=== PATIENT | male | born 1960 | race Caucasian/White ===

== ENCOUNTER 2016-08-23 10:53 | Emergency (ER) | payer BC ==
[~2016-08-23] VITALS: Ht 180.3 cm; Wt 99.2 kg
[~2016-08-23 10:53] MED LIST: BUPRTAB51 PO; PROP10TA7 PO
[2016-08-23 10:55] VITALS: TEMP 36.7; Ht 180.3 cm; Wt 99.2 kg
[2016-08-23] MEDS ORDERED: SODIUM CHLORIDE 0.9% 1000ML 1,000 ML IV STA (11:07)
[2016-08-23] MEDS ORDERED: SODIUM CHLORIDE 0.9% 1000ML 1,000 ML IV ONE (11:07)
[2016-08-23] MEDS ORDERED: KETOROLAC TROMETHAMINE 30 MG/ML VIAL IV STA (11:07)
[2016-08-23 11:17] LABS: BASO % 0.1 %; BASO ABS # 0.01 K/uL (0-0.2); COMPLETE YES; EOS % 0.1 %; HEMATOCRIT 41.8 % (42-52); IG% 0.2 %; LYMPH % 5.7 %; LYMPH ABS # 0.65 K/uL (1.2-3.4); MEAN CELL VOLUME 89.3 fL (80-100); MEAN CORPUSCULAR HEMOGLOBIN 30.6 pg (25-34); MEAN CORPUSCULAR HGB CONC 34.2 g/dl (32-36); MEAN PLATELET VOLUME 10.3 fL (7.4-10.4); MONO % 3.8 %; NEUT % 90.1 %; PLATELET COUNT 167 K/uL (130-400); RED BLOOD COUNT 4.68 M/uL (4.7-6.1); WHITE BLOOD COUNT 11.38 K/uL (4.8-10.8)
[2016-08-23] MEDS ORDERED: OPTIRAY 320 IV PRN (11:30)
[2016-08-23 11:35] LABS: ALT/SGPT 26 U/L (12-78); BLOOD UREA NITROGEN 15 mg/dl (7-18); BUN/CREATININE RATIO 16.4 (10-20); CARBON DIOXIDE 26 mmol/L (21-32); CHLORIDE 107 mmol/L (98-107); CREATININE 0.94 mg/dl (0.60-1.40); GLUCOSE 108 mg/dl (70-99); POTASSIUM 4.4 mmol/L (3.5-5.1); SODIUM 138 mmol/L (136-145)
[2016-08-23 11:38] LABS: ALKALINE PHOSPHATASE 73 U/L (45-117); AST/SGOT 15 U/L (15-37)
[2016-08-23] MEDS ORDERED: PRED-301 PO (11:50)
--- NOTE | 2016-08-23 12:44 | DIAGNOSTIC IMAGING REPORT ---
HEAD WITHOUT CONTRAST (CT) CT DOSE: HISTORY: Mental status change eval for headache, blurry vision TECHNIQUE: Multiaxial CT images of the head were performed without the use of intravenous contrast. Comparison: 11/18/2014 Findings: The paranasal sinuses and mastoid air cells are clear. The calvarium and skull base are intact. The ventricles and sulci are within normal limits. There is no mass, hematoma, midline shift, or acute infarct. Impression: No acute intracranial abnormality. The above report was generated using voice recognition software. It may contain grammatical, syntax or spelling errors. Electronically signed by: Darell Galvez M.D. 08/23/2016 12:43 PM Dictated Date/Time: 08/23/2016 12:40 PM
--- NOTE | 2016-08-23 12:49 | DIAGNOSTIC IMAGING REPORT ---
(CHEST FOR PE) ANGIO WITH CT DOSE: 934.84 mGy.cm HISTORY: Chest pain dyspnea TECHNIQUE: Multiaxial CT images of the chest were performed following the intravenous administration of contrast to evaluate the pulmonary arteries. Maximal intensity projection images were also obtained. COMPARISON STUDY: 04/18/2014 FINDINGS: Thoracic aorta is unremarkable. Pulmonary arterial vasculature enhances appropriately. There is no evidence for filling defect. Nonspecific interstitial prominence both lung bases. Stable 3.5 mm nodule right lung base. No new or interval finding. IMPRESSION: No evidence for pulmonary embolus. Mild bibasilar interstitial prominence The above report was generated using voice recognition software. It may contain grammatical, syntax or spelling errors. Electronically signed by: Darell Galvez M.D. 08/23/2016 12:48 PM Dictated Date/Time: 08/23/2016 12:43 PM
--- NOTE | 2016-08-23 14:19 | EMERGENCY ROOM VISIT NOTE ---
History Report prepared by Sabra: Sam Foley Under the Supervision of: Dr. Maikel Barron M.D. First contact with patient: 10:59 Chief Complaint: CHEST PAIN Stated Complaint: CABRERA, BLURRED VISION, SMALL CHEST PAINS Nursing Triage Summary: Pt reports blurred vision and "zone feeling. I've had a lot of migraines. It feels similar to when I had blood clots." Hx of PE 2.5 years ago. Midsternal cp into neck. Denies back pain. SOB, lightheaded. Pt was recently in [facility]. History of Present Illness The patient is a 55 year old male who presents to the Emergency Room with complaints of persistent chest pain beginning last night. He also complains of sore throat, cough, headaches, blurred vision, feeling "zoned out", and mild shortness of breath. He states that he has been having frequent migraines recently, which is not uncommon for him. The patient states that his current symptoms feel very similar to his previous PE which occurred about 2.5 years ago. He notes that he was in [place] and just returned a few days ago. He was previously on Coumadin but is not on it anymore. The patient denies any fevers. He was seen at a [facility] center this morning for his sore throat recently. Source of History: patient Onset: Last night Position: chest Timing: other (persistent) Associated Symptoms: + headache, + sorethroat, + cough, + SOB (mild), No fevers Note: The patient also complains of a blurred vision, and feeling "zoned out". Review of Systems See HPI for pertinent positives & negatives. A total of 10 systems reviewed and were otherwise negative. Past Medical & Surgical Medical Problems: (1) DVT, lower extremity, distal, acute (2) Factor 5 Leiden mutation, heterozygous (3) History of lumbar fusion (4) History of Lyme disease (5) Migraine (6) No significant medical problems Surgical Problems: (1) Status post cholecystectomy Old medical records were reviewed. Nurse's notes were reviewed and I agree with. Family History Seizures Social History Smoking Status: Never Smoker Alcohol Use: occasionally Drug Use: none Marital Status: Housing Status: lives with family Occupation Status: employed Current/Historical Medications Scheduled Bupropion Hcl (Wellbutrin Xl), 300 MG PO DAILY Prednisone (Prednisone), Unknown Dose PO UD Propranolol (Inderal), 10 MG PO DAILY Allergies Coded Allergies: No Known Allergies (Unverified , 08/23/16) Physical Exam Vital Signs Date Time Temp Pulse Resp B/P (MAP) Pulse Ox O2 Delivery O2 Flow Rate FiO2 08/23/16 14:21 50 18 120/74 95 08/23/16 13:26 53 18 115/71 99 Room Air 08/23/16 12:11 51 08/23/16 11:58 54 18 109/68 96 Room Air 08/23/16 10:55 36.7 56 18 125/80 96 Room Air Physical Exam General: non-ill appearing middle aged male in no acute distress HEENT: Normal cephalic atraumatic. Pupils are equal round and reactive to light. Extraocular movements are intact. Oropharynx is pink with moist mucous membranes. No swelling of the mouth lips or tongue. Neck: Supple with a midline trachea. No meningeal signs or stiffness, no JVD or bruits. No Stridor. Chest: Clear to auscultation bilaterally. No wheezes or rhonchi. No increased work of breathing. Heart: regular rate and rhythm. Abdomen: Soft nontender, nondistended without rebound guarding or rigidity. Extremities: No cyanosis clubbing or edema. No calf tenderness or assymetry Spine/Back. Non tender to palpation. No CVA tenderness Skin: Good turgor without rashes. Neurologic exam: Cranial nerves two through 12 are intact. Motor and sensation are intact and symmetrical throughout. Medical Decision & Procedures ER Provider Diagnostic Interpretation: CT results as stated below per my review and radiologist interpretation: HEAD WITHOUT CONTRAST (CT) Findings: The paranasal sinuses and mastoid air cells are clear. The calvarium and skull base are intact. The ventricles and sulci are within normal limits. There is no mass, hematoma, midline shift, or acute infarct. Impression: No acute intracranial abnormality. The above report was generated using voice recognition software. It may contain grammatical, syntax or spelling errors. Electronically signed by: Darell Galvez M.D. (CHEST FOR PE) ANGIO WITH FINDINGS: Thoracic aorta is unremarkable. Pulmonary arterial vasculature enhances appropriately. There is no evidence for filling defect. Nonspecific interstitial prominence both lung bases. Stable 3.5 mm nodule right lung base. No new or interval finding. IMPRESSION: No evidence for pulmonary embolus. Mild bibasilar interstitial prominence The above report was generated using voice recognition software. It may contain grammatical, syntax or spelling errors. Electronically signed by: Daerll Galvez M.D. Laboratory Results 08/23/16 11:07 Red Blood Count 4.68, Mean Corpuscular Volume 89.3, Mean Corpuscular Hemoglobin 30.6, Mean Corpuscular Hemoglobin Concent 34.2, Mean Platelet Volume 10.3, Neutrophils (%) (Auto) 90.1, Lymphocytes (%) (Auto) 5.7, Monocytes (%) (Auto) 3.8, Eosinophils (%) (Auto) 0.1, Basophils (%) (Auto) 0.1, Neutrophils # (Auto) 10.26, Lymphocytes # (Auto) 0.65, Monocytes # (Auto) 0.43, Eosinophils # (Auto) 0.01, Basophils # (Auto) 0.01 08/23/16 11:07 Test 08/23/16 11:07 White Blood Count 11.38 K/uL (4.8-10.8) Red Blood Count 4.68 M/uL (4.7-6.1) Hemoglobin 14.3 g/dL (14.0-18.0) Hematocrit 41.8 % (42-52) Mean Corpuscular Volume 89.3 fL (80-100) Mean Corpuscular Hemoglobin 30.6 pg (25-34) Mean Corpuscular Hemoglobin Concent 34.2 g/dl (32-36) Platelet Count 167 K/uL (130-400) Mean Platelet Volume 10.3 fL (7.4-10.4) Neutrophils (%) (Auto) 90.1 % Lymphocytes (%) (Auto) 5.7 % Monocytes (%) (Auto) 3.8 % Eosinophils (%) (Auto) 0.1 % Basophils (%) (Auto) 0.1 % Neutrophils # (Auto) 10.26 K/uL (1.4-6.5) Lymphocytes # (Auto) 0.65 K/uL (1.2-3.4) Monocytes # (Auto) 0.43 K/uL (0.11-0.59) Eosinophils # (Auto) 0.01 K/uL (0-0.5) Basophils # (Auto) 0.01 K/uL (0-0.2) RDW Standard Deviation 41.6 fL (36.4-46.3) RDW Coefficient of Variation 12.9 % (11.5-14.5) Immature Granulocyte % (Auto) 0.2 % Immature Granulocyte # (Auto) 0.02 K/uL (0.00-0.02) Anion Gap 5.0 mmol/L (3-11) Est Creatinine Clear Calc Drug Dose 109.1 ml/min Estimated GFR () 106.9 Estimated GFR (Non- 92.2 BUN/Creatinine Ratio 16.4 (10-20) Calcium Level 9.0 mg/dl (8.5-10.1) Total Bilirubin 0.5 mg/dl (0.2-1) Direct Bilirubin < 0.1 mg/dl (0-0.2) Aspartate Amino Transf (AST/SGOT) 15 U/L (15-37) Alanine Aminotransferase (ALT/SGPT) 26 U/L (12-78) Alkaline Phosphatase 73 U/L (45-117) Troponin I < 0.015 ng/ml (0-0.045) Total Protein 7.3 gm/dl (6.4-8.2) Albumin 3.7 gm/dl (3.4-5.0) Lipase 102 U/L (73-393) Laboratory studies as stated above per my review. Medications Administered Medications (Trade) Dose Ordered Sig/Rukhsana Route Start Time Stop Time Status Last Admin Dose Admin Sodium Chloride 1,000 ml @ 999 mls/hr Q1H1M STAT IV 08/23/16 11:07 08/23/16 12:07 DC 08/23/16 11:15 999 MLS/HR Sodium Chloride 1,000 ml @ 150 mls/hr Q6H40M ONCE IV 08/23/16 11:07 08/23/16 14:34 DC 08/23/16 12:02 150 MLS/HR Ketorolac Tromethamine (Toradol Inj) 30 mg NOW STAT IV 08/23/16 11:07 08/23/16 11:10 DC 08/23/16 11:14 30 MG ECG Indication: chest pain Rate (beats per minute): 53 Rhythm: sinus bradycardia Findings: no acute ischemic change, no ectopy Comparison ECG Date: July 06, 2014 Change: no significant change ED Course 1101: Past medical records reviewed. The patient was evaluated in room B3B, and a complete history and physical examination were performed. 1107: Ordered Toradol Inj 30 mg IV, Sodium Chloride 1000 ml @ 150 mls/hr IV, Sodium Chloride 1000 ml @ 999 mls/hr IV. 1405: Upon reevaluation, the patient is resting comfortably. I discussed the results and treatment plan with him. He verbalized agreement of the treatment plan. The patient was discharged home. Medical Decision Differentials include, but are not limited to; migraine, PE, cardiac disease, intracranial process, infection, and electrolyte or metabolic abnormality. Medication reconciliation I have reviewed the patient's medications on the chart Blood pressure monitoring: The patient has blood pressure that is normal and does not need follow-up This patient comes in as described above he has a history of PE and did travel recently had some vague chest discomfort on the left and also felt like his vision was slightly off. He said he had these type of symptoms when his PE before was worried this diagnoses . Additionally he has had migraines and this is been a chronic issue. He's had no fever or chills or trauma. He has a normal neurologic exam. Looking at his eyes, he has no redness ears visual acuity is slightly diminished but he says the left eye is been given problems for quite some time. He is no proptosis. He has nothing to no anterior chamber abnormality or hyphema. CAT scan does not show any evidence of PE. He has nothing to suggest acute coronary syndrome or arrhythmia. He has a normal neurologic exam and normal CAT scan his head he is feeling better with the fluids and Toradol. I do think he should follow-up with an eye doctor he is to return if: increasing pain, worsening of symptoms, fever chills, any new problems or concerns. He is happy with the plan and was and discharged to home. Impression Primary Impression: Left sided chest pain Additional Impression: Migraine Scribe Attestation The scribe's documentation has been prepared under my direction and personally reviewed by me in its entirety. I confirm that the note above accurately reflects all work, treatment, procedures, and medical decision making performed by me. Departure Information Dispostion Home / Self-Care Referrals No Doctor, Assigned (PCP) Forms HOME CARE DOCUMENTATION FORM, IMPORTANT VISIT INFORMATION Patient Instructions My [facility] Additional Instructions Rest. Plenty of fluids. Return if: worsening of symptoms, any new problems or concerns Follow-up with your doctor this week for recheck Problem Qualifiers
[2016-08-23 14:21] VITALS: BP 120/74; PULSE 50; O2SAT 95
== END 2016-08-23 14:22 | disposition home or self-care (01) ==
LOC: C.EDB 10:55
DX: R07.9 Chest pain, unspecified (principal); G43.909 Migraine, unspecified, not intractable, without status migrainosus; Z86.718 Personal history of other venous thrombosis and embolism; D68.51 Activated protein C resistance; Z90.49 Acquired absence of other specified parts of digestive tract; Z98.1 Arthrodesis status; Z82.0 Family history of epilepsy and other diseases of the nervous system; Z79.899 Other long term (current) drug therapy

== ENCOUNTER 2017-02-13 22:24 | Emergency (ER) | payer BC ==
[~2017-02-13] VITALS: Ht 180.3 cm; Wt 100.0 kg
[~2017-02-13 22:24] MED LIST changes: +PRED-301 PO; +[UNRECOGNIZED DRUG - CODE] PEG
[2017-02-13 22:29] VITALS: TEMP 36.4; Ht 180.3 cm; Wt 100.0 kg
[2017-02-13 22:58] VITALS: O2SAT 96
[2017-02-13 23:11] LABS: BASO % 0.6 %; BASO ABS # 0.03 K/uL (0-0.2); EOS ABS # 0.15 K/uL (0-0.5); HEMATOCRIT 41.8 % (42-52); HEMOGLOBIN 14.7 g/dL (14.0-18.0); IG# 0.01 K/uL (0.00-0.02); LYMPH % 34.5 %; LYMPH ABS # 1.73 K/uL (1.2-3.4); MEAN CELL VOLUME 88.4 fL (80-100); MEAN CORPUSCULAR HEMOGLOBIN 31.1 pg (25-34); MEAN CORPUSCULAR HGB CONC 35.2 g/dl (32-36); MEAN PLATELET VOLUME 10.1 fL (7.4-10.4); NEUT % 53.7 %; NEUT ABS # 2.69 K/uL (1.4-6.5); PLATELET COUNT 161 K/uL (130-400); RED CELL DISTRIBUTION WIDTH CV 12.7 % (11.5-14.5); RED CELL DISTRIBUTION WIDTH SD 40.7 fL (36.4-46.3); WHITE BLOOD COUNT 5.01 K/uL (4.8-10.8)
[2017-02-13 23:25] LABS: PTT PATIENT 26.2 SECONDS (21.0-31.0)
[2017-02-13 23:28] LABS: BLOOD UREA NITROGEN 12 mg/dl (7-18); CALCIUM 8.9 mg/dl (8.5-10.1); CARBON DIOXIDE 30 mmol/L (21-32); CREATININE 0.98 mg/dl (0.60-1.40); GLUCOSE 97 mg/dl (70-99); POTASSIUM 3.7 mmol/L (3.5-5.1); SODIUM 139 mmol/L (136-145)
[2017-02-13] MEDS ORDERED: LMC25 PO (23:32)
[2017-02-13] MEDS ORDERED: IMTIN5 (23:32)
[2017-02-13 23:54] VITALS: BP 110/68; PULSE 67; O2SAT 97
[2017-02-13] MEDS ORDERED: KETOROLAC TROMETHAMINE 30 MG/ML VIAL IV STA (23:59)
--- NOTE | 2017-02-13 23:59 | EMERGENCY ROOM VISIT NOTE ---
History Report prepared by Sabra: Doemnico Caba Under the Supervision of: Dr. Fredy Silva D.O. First contact with patient: 22:32 Chief Complaint: CARDIAC ASSESSMENT Stated Complaint: CHEST PAIN, FEELS LIKE A FLUTTER IN HEART History of Present Illness The patient is a 56 year old male who presents to the Emergency Room with complaints of constant, sharp, chest pain beginning an hour ago. The patient states he was sitting down watching TV when his symptoms began. He reports his symptoms intensified, so he came to the ED. The patient notes his symptoms also felt similar to when he had a PE. He states he had gallbladder surgery when he developed his PE. The patient reports he was on blood thinners for a year and is currently off them. He notes he just returned from a cruise to [place], and he flew from [place] to [facility]. The patient states he had to drive to [place] from here. He denies shortness of breath, recent swelling in his legs, recent surgery, and recent illness. The patient notes he did not show symptoms in his legs when he had his PE. He states he has a history of Factor V Leiden. Source of History: patient Onset: an hour ago Position: chest Quality: sharp Timing: constant Associated Symptoms: No SOB Note: Associated symptoms: recent travel Denies: recent swelling in his legs, recent surgery, recent illness Review of Systems See HPI for pertinent positives & negatives. A total of 10 systems reviewed and were otherwise negative. Past Medical & Surgical Medical Problems: (1) DVT, lower extremity, distal, acute (2) Factor 5 Leiden mutation, heterozygous (3) History of lumbar fusion (4) History of Lyme disease (5) Migraine (6) No significant medical problems Surgical Problems: (1) Status post cholecystectomy Family History Seizures Social History Smoking Status: Never Smoker Alcohol Use: occasionally Drug Use: none Marital Status: Housing Status: lives with family Occupation Status: employed Current/Historical Medications Scheduled Bupropion Hcl (Wellbutrin Xl), 300 MG PO DAILY Lamotrigine (Lamotrigine), 75 MG PO DAILY Scheduled PRN Sumatriptan Succinate (Imitrex Nasal [place]), 1 SPRAY NA DIRECTED PRN for Migraine Allergies Coded Allergies: No Known Allergies (Unverified , 02/13/17) Physical Exam Vital Signs Date Time Temp Pulse Resp B/P (MAP) Pulse Ox O2 Delivery O2 Flow Rate FiO2 02/13/17 23:54 67 20 110/68 97 Room Air 02/13/17 22:59 66 18 109/62 96 Room Air 02/13/17 22:58 96 Room Air 02/13/17 22:54 97 Room Air 02/13/17 22:50 68 02/13/17 22:29 36.4 72 20 120/82 97 Room Air Physical Exam CONSTITUTIONAL/VITAL SIGNS: Reviewed / noted above. GENERAL: Non-toxic in appearance. INTEGUMENTARY: Warm, dry, and [place]. HEAD: Normocephalic. EYES: without scleral icterus or trauma. ENT/OROPHARYNX: clear and moist. LYMPHADENOPATHY/NECK: Is supple without lymphadenopathy or meningismus. RESPIRATORY: Lungs clear and equal. CARDIOVASCULAR: Regular rate and rhythm. GI/ABDOMEN: Soft and nontender. No organomegaly or pulsatile mass. No rebound or guarding. Normal bowel sounds. EXTREMITIES: Warm and well perfused. BACK: No CVA tenderness. NEUROLOGICAL: Intact without focal deficits. PSYCHIATRIC: normal affect. MUSCULOSKELETAL: Normally developed with good muscle tone. Medical Decision & Procedures ER Provider Diagnostic Interpretation: X ray results and stated below per my interpretation and radiology interpretation. Chest One View Portable: No acute disease. No pneumothorax. No pneumonia. Laboratory Results 02/13/17 22:50 Red Blood Count 4.73, Mean Corpuscular Volume 88.4, Mean Corpuscular Hemoglobin 31.1, Mean Corpuscular Hemoglobin Concent 35.2, Mean Platelet Volume 10.1, Neutrophils (%) (Auto) 53.7, Lymphocytes (%) (Auto) 34.5, Monocytes (%) (Auto) 8.0, Eosinophils (%) (Auto) 3.0, Basophils (%) (Auto) 0.6, Neutrophils # (Auto) 2.69, Lymphocytes # (Auto) 1.73, Monocytes # (Auto) 0.40, Eosinophils # (Auto) 0.15, Basophils # (Auto) 0.03 02/13/17 22:50 Test 02/13/17 22:50 White Blood Count 5.01 K/uL (4.8-10.8) Red Blood Count 4.73 M/uL (4.7-6.1) Hemoglobin 14.7 g/dL (14.0-18.0) Hematocrit 41.8 % (42-52) Mean Corpuscular Volume 88.4 fL (80-100) Mean Corpuscular Hemoglobin 31.1 pg (25-34) Mean Corpuscular Hemoglobin Concent 35.2 g/dl (32-36) Platelet Count 161 K/uL (130-400) Mean Platelet Volume 10.1 fL (7.4-10.4) Neutrophils (%) (Auto) 53.7 % Lymphocytes (%) (Auto) 34.5 % Monocytes (%) (Auto) 8.0 % Eosinophils (%) (Auto) 3.0 % Basophils (%) (Auto) 0.6 % Neutrophils # (Auto) 2.69 K/uL (1.4-6.5) Lymphocytes # (Auto) 1.73 K/uL (1.2-3.4) Monocytes # (Auto) 0.40 K/uL (0.11-0.59) Eosinophils # (Auto) 0.15 K/uL (0-0.5) Basophils # (Auto) 0.03 K/uL (0-0.2) RDW Standard Deviation 40.7 fL (36.4-46.3) RDW Coefficient of Variation 12.7 % (11.5-14.5) Immature Granulocyte % (Auto) 0.2 % Immature Granulocyte # (Auto) 0.01 K/uL (0.00-0.02) Prothrombin Time 10.6 SECONDS (9.0-12.0) Prothromb Time International Ratio 1.0 (0.9-1.1) Activated Partial Thromboplast Time 26.2 SECONDS (21.0-31.0) Partial Thromboplastin Ratio 1.0 D-Dimer 350 ug/L FEU (0-500) Anion Gap 4.0 mmol/L (3-11) Est Creatinine Clear Calc Drug Dose 103.8 ml/min Estimated GFR () 100.9 Estimated GFR (Non- 87.1 BUN/Creatinine Ratio 12.6 (10-20) Calcium Level 8.9 mg/dl (8.5-10.1) Troponin I < 0.015 ng/ml (0-0.045) Laboratory results as stated above per my review. Medications Administered Medications (Trade) Dose Ordered Sig/Rukhsana Route Start Time Stop Time Status Last Admin Dose Admin Ketorolac Tromethamine (Toradol Inj) 30 mg NOW STAT IV 02/13/17 23:59 02/14/17 00:00 DC 02/14/17 00:05 30 MG ECG Indication: chest pain Rate (beats per minute): 61 Rhythm: normal sinus Findings: no acute ischemic change, no ectopy ED Course 2235: Previous medical records were reviewed. The patient was evaluated in room B02. A complete history and physical examination was performed. 2358: Ordered Ketorolac Tromethamine 30 mg IV 0001: On reevaluation, the patient is resting comfortably. I discussed the results and findings with the patient. The patient verbalized agreement of the treatment plan. He was discharged home. Medical Decision Differentials considered include acute myocardial infarction, acute coronary syndrome, myocarditis, pericarditis, pericardial effusions /tamponade, esophageal perforation, thoracic aortic dissection, pulmonary embolism, pneumonia, pneumothorax, pancreatitis, shingles, acute cholecystitis, and perforated abdominal viscus. This is a 56-year-old male who presents to the ED with a chief complaint of chest pain for one hour. He reports a sharp left-sided chest pain in the upper chest. He also thought that he might a felt a little fluttering. He states that his symptoms were similar to a PE 2 years ago. He has history of factor V Leiden. The patient does report recent travel. He states that he flew from [place] to the [facility] and then drove from [place] to [facility]. The patient denies any pain in his legs or swelling. I did review his previous chart when he had a PE. At that time, he had a positive D-dimer test. I did offer CT scan versus d-dimer for the patient today. He decided on d-dimer. The patient does not have any lower show any swelling and he is not short of breath. His pain is very localized left anterior chest. D-dimer was negative. CBC is normal, troponin was negative, EKG shows a sinus rhythm, there be was normal. The patient was told the results of the test. He is felt to be stable for discharge and outpatient follow-up. Medication Reconcilliation Current Medication List: was personally reviewed by me Blood Pressure Screening Patient's blood pressure: Normal blood pressure Blood pressure disposition: Did not require urgent referral Impression Primary Impression: Left sided chest pain Scribe Attestation The scribe's documentation has been prepared under my direction and personally reviewed by me in its entirety. I confirm that the note above accurately reflects all work, treatment, procedures, and medical decision making performed by me. Departure Information Dispostion Home / Self-Care Referrals Milton Rene M.D. (PCP) Forms IMPORTANT VISIT INFORMATION Patient Instructions My [facility] Additional Instructions Take ibuprofen for pain as needed. Follow-up with your doctor for further care and evaluation in 1-2 days if symptoms persist. Return to the emergency department for worsening or new symptoms or any concerns. You have been examined and treated today on an emergency basis only. This is not a substitute for, or an effort to provide, complete comprehensive medical care. It is impossible to recognize and treat all injuries or illnesses in a single emergency department visit. It is therefore important that you follow up closely with your doctor. Call as soon as possible for an appointment.
--- NOTE | 2017-02-14 07:37 | DIAGNOSTIC IMAGING REPORT ---
CHEST ONE VIEW PORTABLE HISTORY: Evaluate Fever/Sepsis COMPARISON: Chest 07/06/2014. FINDINGS: The lungs are clear. Cardiac silhouette is borderline enlarged. No pleural effusions. No pneumothorax. IMPRESSION: No significant change compared to the prior study. No acute process. Electronically signed by: Trey Hill M.D. 02/14/2017 7:35 AM Dictated Date/Time: 02/14/2017 7:35 AM
== END 2017-02-14 00:15 | disposition home or self-care (01) ==
LOC: C.EDB 22:25
DX: R07.9 Chest pain, unspecified (principal); D68.51 Activated protein C resistance; Z86.711 Personal history of pulmonary embolism; Z86.718 Personal history of other venous thrombosis and embolism; Z98.1 Arthrodesis status; Z90.49 Acquired absence of other specified parts of digestive tract; Z82.0 Family history of epilepsy and other diseases of the nervous system

== ENCOUNTER 2017-05-21 15:28 | Emergency (ER) | payer BC ==
[~2017-05-21] VITALS: Ht 180.3 cm; Wt 101.2 kg
[~2017-05-21 15:28] MED LIST changes: +IMTIN5; +LAMO100T16 PO; +LMC25 PO; -PRED-301 PO; -PROP10TA7 PO; +SUMA6KIT INJ; -[UNRECOGNIZED DRUG - CODE] PEG
[2017-05-21 15:33] VITALS: TEMP 36.7; Ht 180.3 cm; Wt 101.2 kg
[2017-05-21] MEDS ORDERED: KETOROLAC TROMETHAMINE 30 MG/ML VIAL IV STA (15:51)
[2017-05-21] MEDS ORDERED: DiphenhydrAMINE HCL 50 MG/ML VIAL IV STA (15:51)
[2017-05-21] MEDS ORDERED: MAGNESIUM SULFATE 1GM / D5W 1 GM BAG IV STA (15:51)
[2017-05-21] MEDS ORDERED: METOCLOPRAMIDE HCL INJ 5 MG/ML 2 ML VIAL IV STA (15:51)
[2017-05-21] MEDS ORDERED: OXYC1TAB3 PO (16:00)
[2017-05-21 16:37] LABS: BASO % 0.8 %; BASO ABS # 0.05 K/uL (0-0.2); EOS % 7.3 %; EOS ABS # 0.45 K/uL (0-0.5); HEMATOCRIT 41.1 % (42-52); HEMOGLOBIN 14.3 g/dL (14.0-18.0); IG# 0.01 K/uL (0.00-0.02); LYMPH % 26.9 %; LYMPH ABS # 1.66 K/uL (1.2-3.4); MEAN CELL VOLUME 87.6 fL (80-100); MEAN CORPUSCULAR HEMOGLOBIN 30.5 pg (25-34); MEAN CORPUSCULAR HGB CONC 34.8 g/dl (32-36); MEAN PLATELET VOLUME 10.4 fL (7.4-10.4); MONO % 6.2 %; MONO ABS # 0.38 K/uL (0.11-0.59); NEUT % 58.6 %; NEUT ABS # 3.61 K/uL (1.4-6.5); PLATELET COUNT 169 K/uL (130-400); RED CELL DISTRIBUTION WIDTH CV 12.6 % (11.5-14.5); RED CELL DISTRIBUTION WIDTH SD 40.4 fL (36.4-46.3); WHITE BLOOD COUNT 6.16 K/uL (4.8-10.8)
[2017-05-21 16:55] LABS: CALCIUM 8.6 mg/dl (8.5-10.1); CREATININE 0.98 mg/dl (0.60-1.40); POTASSIUM 3.8 mmol/L (3.5-5.1)
[2017-05-21 16:56] VITALS: BP 116/67; PULSE 53; O2SAT 96
--- NOTE | 2017-05-21 18:12 | EMERGENCY ROOM VISIT NOTE ---
History Report prepared by Sabra: Violet Keith Under the Supervision of: Dr. Deandre Escobar M.D. First contact with patient: 15:40 Chief Complaint: HEADACHE Stated Complaint: MIRAGINE History of Present Illness The patient is a 56 year old male who presents to the Emergency Room with complaints of a constant headache starting 8 days ago. The patient states that he has a history of migraines for 15 years and this feels similar to his previous ones. He states that he received Botox 2 days ago for them and it offered no relief. He reports that he has never had his migraine for more than 3 days. He reports that his migraines have started to move from the front of his forehead to the back of his head. He notes that is where this one is today. He states that it is a constant pressure with shooting pains. He notes he has taken Imitrex injections with no relief. He notes his last injection was . The patient notes that it is worse with light, but is not affected much by sound or smell. The patient denies fever, vomiting, numbness, and weakness. He complains of blurred vision today. He states that the last time he had blurred vision he had a PE, but he also had chest pain at that time. The patient denies chest pain or shortness of breath now, spots in front of his eyes , and double vision. The patient notes that he used a nasal spray for migraines on that he has taken in the past, but this time it made his nasal passageways swell shut. He reports that he couldn't breathe through his nose due to congestion. This eventually resolved. The patient denies abdominal pain. Source of History: patient Onset: 8 days Position: head Quality: pressure, other (shooting) Timing: constant Modifying Factors (Worsening): other (light) Associated Symptoms: No fevers, No chest pain, No SOB, No vomiting, No abdominal pain, No weakness, No numbness Note: The patient complains of blurred vision. The patient denies spots in his vision and double vision. Review of Systems See HPI for pertinent positives & negatives. A total of 10 systems reviewed and were otherwise negative. Past Medical & Surgical Medical Problems: (1) DVT, lower extremity, distal, acute (2) Factor 5 Leiden mutation, heterozygous (3) History of lumbar fusion (4) History of Lyme disease (5) Migraine (6) No significant medical problems Surgical Problems: (1) Status post cholecystectomy Family History Seizures Social History Smoking Status: Never Smoker Alcohol Use: occasionally Drug Use: none Marital Status: Housing Status: lives with family Occupation Status: employed Current/Historical Medications Scheduled Bupropion Hcl (Wellbutrin Xl), 300 MG PO DAILY Lamotrigine (Lamotrigine), 125 MG PO DAILY Sumatriptan Succinate (Imitrex Statdose), 6 MG INJ Q2H Scheduled PRN Oxycodone Ir (Roxicodone Ir), 5 MG PO Q4H PRN for Severe Pain Sumatriptan Succinate (Imitrex Nasal [place]), 1 SPRAY NA DIRECTED PRN for Migraine Allergies Coded Allergies: No Known Allergies (Unverified , 05/21/17) Physical Exam Vital Signs Date Time Temp Pulse Resp B/P (MAP) Pulse Ox O2 Delivery O2 Flow Rate FiO2 05/21/17 16:56 53 16 116/67 96 Room Air 05/21/17 16:36 62 05/21/17 15:33 36.7 62 20 111/64 96 Room Air Physical Exam Constitutional: Vital signs reviewed. Eyes: Pupils are equal round reactive to light. Conjunctiva are noninjected. ENT: Pharynx is clear without erythema or exudate. Mucous membranes are moist. Neck supple without meningeal signs. Nasal turbinates slightly inflamed, left greater than right. Respiratory: Clear to auscultation bilaterally. Breath sounds are equal bilaterally. Cardiovascular: Regular rate and rhythm. No rubs or gallops. GI: Soft, nondistended and nontender. Bowel sounds are present. Musculoskeletal: No peripheral edema. No lower extremity tenderness. Integumentary: No cyanosis. Neurological: The patient is awake and alert. Cranial nerves II-XII are intact. Motor is 5 out of 5 all extremities. Sensation is intact to light touch all extremities. Normal speech. No pronator drift. Psychiatric: Normal affect. Medical Decision & Procedures Laboratory Results 05/21/17 16:15 Red Blood Count 4.69, Mean Corpuscular Volume 87.6, Mean Corpuscular Hemoglobin 30.5, Mean Corpuscular Hemoglobin Concent 34.8, Mean Platelet Volume 10.4, Neutrophils (%) (Auto) 58.6, Lymphocytes (%) (Auto) 26.9, Monocytes (%) (Auto) 6.2, Eosinophils (%) (Auto) 7.3, Basophils (%) (Auto) 0.8, Neutrophils # (Auto) 3.61, Lymphocytes # (Auto) 1.66, Monocytes # (Auto) 0.38, Eosinophils # (Auto) 0.45, Basophils # (Auto) 0.05 05/21/17 16:15 Test 05/21/17 16:15 White Blood Count 6.16 K/uL (4.8-10.8) Red Blood Count 4.69 M/uL (4.7-6.1) Hemoglobin 14.3 g/dL (14.0-18.0) Hematocrit 41.1 % (42-52) Mean Corpuscular Volume 87.6 fL (80-100) Mean Corpuscular Hemoglobin 30.5 pg (25-34) Mean Corpuscular Hemoglobin Concent 34.8 g/dl (32-36) Platelet Count 169 K/uL (130-400) Mean Platelet Volume 10.4 fL (7.4-10.4) Neutrophils (%) (Auto) 58.6 % Lymphocytes (%) (Auto) 26.9 % Monocytes (%) (Auto) 6.2 % Eosinophils (%) (Auto) 7.3 % Basophils (%) (Auto) 0.8 % Neutrophils # (Auto) 3.61 K/uL (1.4-6.5) Lymphocytes # (Auto) 1.66 K/uL (1.2-3.4) Monocytes # (Auto) 0.38 K/uL (0.11-0.59) Eosinophils # (Auto) 0.45 K/uL (0-0.5) Basophils # (Auto) 0.05 K/uL (0-0.2) RDW Standard Deviation 40.4 fL (36.4-46.3) RDW Coefficient of Variation 12.6 % (11.5-14.5) Immature Granulocyte % (Auto) 0.2 % Immature Granulocyte # (Auto) 0.01 K/uL (0.00-0.02) Anion Gap 4.0 mmol/L (3-11) Est Creatinine Clear Calc Drug Dose 104.4 ml/min Estimated GFR () 100.9 Estimated GFR (Non- 87.1 BUN/Creatinine Ratio 16.2 (10-20) Calcium Level 8.6 mg/dl (8.5-10.1) Laboratory results as reviewed by me. Medications Administered Medications (Trade) Dose Ordered Sig/Rukhsana Route Start Time Stop Time Status Last Admin Dose Admin Metoclopramide HCl (Reglan Inj) 10 mg NOW STAT IV 05/21/17 15:51 05/21/17 15:53 DC 05/21/17 16:10 10 MG Diphenhydramine HCl (Benadryl Inj) 50 mg NOW STAT IV 05/21/17 15:51 05/21/17 15:53 DC 05/21/17 16:10 50 MG Ketorolac Tromethamine (Toradol Inj) 10 mg NOW STAT IV 05/21/17 15:51 05/21/17 15:54 DC 05/21/17 16:09 10 MG Magnesium Sulfate (Magnesium Sulfate) 1 gm NOW STAT IV 05/21/17 15:51 05/21/17 15:54 DC 05/21/17 16:09 1 GM ED Course 1543: The patient was evaluated in room C12B. A complete history and physical exam was performed. 1551: Ordered Magnesium Sulfate 1 gm IV, Toradol Inj 10 mg IV, Benadryl Inj 50 mg IV, Reglan Inj 10 mg IV. 1646: I reevaluated the patient and his headache is gone. 1709: Upon reevaluation, the patient appeared to have improvement of his symptoms. I discussed tonight's findings with him. He verbalized agreement of the treatment plan. The patient was discharged home. Medical Decision This is a 56-year-old male who presents with a headache. I did perform a limited focused review of portions of the patient's old chart on the electronic medical record. The patient has had no recent pertinent visits to this hospital. He is followed by pain management for migraines and had Botox injections of May 19. I did evaluate the patient as noted above. Patient is presenting with a headache which is consistent with his prior migraine headaches. He has not had relief with his Imitrex or recent Botox injections. He is neurologically intact on my examination. He is afebrile and there was no history of trauma. I have no reason to suspect intracranial hemorrhage or meningitis. I did treat the patient with normal saline IV. He was also given Reglan, Benadryl, Toradol and magnesium IV. I did order and review the patient's blood work as noted in the electronic medical record. Labs are unremarkable. I did reassess the patient. I did discuss the test results with the patient and his . He states his headache is now resolved. I did recommend he follow-up with his doctor. He was discharged in good condition. Medication Reconcilliation Current Medication List: was personally reviewed by me Blood Pressure Screening Patient's blood pressure: Normal blood pressure Blood pressure disposition: Did not require urgent referral Impression Primary Impression: Migraine Scribe Attestation The scribe's documentation has been prepared under my direct and personally reviewed by me in its entirety. I confirm that the note above accurately reflects all work, treatment, procedures, and medical decision making performed by me. Departure Information Dispostion Home / Self-Care Referrals Milton Rene M.D. (PCP) Forms HOME CARE DOCUMENTATION FORM, IMPORTANT VISIT INFORMATION Patient Instructions My [facility] Additional Instructions You have been examined and treated today on an emergency basis only. This is not a substitute for, or an effort to provide, complete comprehensive medical care. It is impossible to recognize and treat all injuries or illnesses in a single emergency department visit. It is therefore important that you follow up closely with your physician. Call as soon as possible for an appointment. Return for worsening symptoms or if you develop fever, numbness or weakness on one side of your body, difficulties with your speech or walking, or any other concerning symptoms. Problem Qualifiers Primary Impression: Migraine Migraine type: unspecified Status migrainosus presence: without status migrainosus Intractability: not intractable Qualified Codes: G43.909 - Migraine, unspecified, not intractable, without status migrainosus
== END 2017-05-21 17:22 | disposition home or self-care (01) ==
LOC: C.EDC 15:29
DX: G43.909 Migraine, unspecified, not intractable, without status migrainosus (principal); D68.51 Activated protein C resistance